=== PATIENT | female | born 1965 | race Caucasian/White ===

== ENCOUNTER 2024-07-08 06:10 | Day surgery (SDC) | payer OTHER, MEDICAID ==
[2024-07-07 13:29] VITALS: BMI 43.9
[2024-07-08] MEDS ORDERED: PROPOFOL 40 ML ONE (06:43)
[2024-07-08] MEDS ORDERED: PHENYLEPHRINE-NS 100 MCG/ML 10 ML SYRINGE ONE ×2 (06:43→08:50)
[2024-07-08] MEDS ORDERED: GLYCOPYRROLATE/PF 0.2 MG/ML VIAL ONE (06:43)
[2024-07-08] MEDS ORDERED: Lidocaine 2% PF 100 mg/5 ml Syringe ONE (06:43)
[2024-07-08] MEDS ORDERED: Midazolam HCl 2 mg/2 ml Vial ONE (07:10)
[2024-07-08] MEDS ORDERED: Fleet Saline Enema 133 ML BOT FS SCH (07:30)
[2024-07-08] MEDS ORDERED: PROPOFOL 20 ML ONE ×3 (09:03→09:41)
[2024-07-08] MEDS ORDERED: Ketamine In 0.9 % NaCl 50 MG/5 ML SYRINGE ONE (09:57)
== END 2024-07-08 12:45 | disposition home or self-care (01) ==
LOC: SDC 06:10
PROVIDERS: ATTEND Internal Medicine Gastroenterology
DX: D12.2 Benign neoplasm of ascending colon (principal); D12.3 Benign neoplasm of transverse colon; D12.4 Benign neoplasm of descending colon; K57.30 Diverticulosis of large intestine without perforation or abscess without bleeding; J96.90 Respiratory failure, unspecified, unspecified whether with hypoxia or hypercapnia; K52.9 Noninfective gastroenteritis and colitis, unspecified; E66.01 Morbid (severe) obesity due to excess calories; E11.9 Type 2 diabetes mellitus without complications; K21.9 Gastro-esophageal reflux disease without esophagitis; G47.00 Insomnia, unspecified; Z79.51 Long term (current) use of inhaled steroids; Z79.899 Other long term (current) drug therapy; Z68.41 Body mass index [BMI] 40.0-44.9, adult; Z99.81 Dependence on supplemental oxygen
CPT/HCPCS: 45380; 45385; J2003; J2250; J2704; J3490 ×2; 88305

== ENCOUNTER 2024-08-04 09:38 | Outpatient (CLI) | payer OTHER | END 2024-08-04 09:39 | disposition home or self-care (01) | LOC: CT 09:38 | PROVIDERS: ATTEND Physician Assistant Medical | DX: C18.7 Malignant neoplasm of sigmoid colon (principal); K63.5 Polyp of colon; E04.2 Nontoxic multinodular goiter; K76.0 Fatty (change of) liver, not elsewhere classified; R23.4 Changes in skin texture; R60.0 Localized edema | CPT/HCPCS: 71260; 74177 ==